=== PATIENT | male | born 1950 | race Caucasian/White ===

== ENCOUNTER 2024-10-04 15:56 | Outpatient (RCR) | payer MEDICARE, BC | END 2024-10-08 | LOC: PT 15:56 | PROVIDERS: ATTEND Family Medicine Adult Medicine | DX: S43.431A Superior glenoid labrum lesion of right shoulder, initial encounter (principal) ==

== ENCOUNTER → 2024-12-21 | Outpatient (REF) | payer MEDICARE, BC ==
[2024-12-21 09:54] LABS: BASOPHILS % 0.2 % (0.0-1.0); EOSINOPHILS # (AUTO) 0.2 (0.0-0.4); EOSINOPHILS % 3.5 % (0.0-6.0); HEMOGLOBIN 12.7 g/dL (14.0-18.0); LYMPHOCYTES # (AUTO) 1.5 (1.0-3.2); LYMPHOCYTES % 30.7 % (18.0-39.1); MEAN CORPUSCULAR HEMOGLOBIN 29.5 pg (28-32); MEAN CORPUSCULAR HGB CONC 33.4 g/dL (31-35); MEAN CORPUSCULAR VOLUME 88.2 fL (81-99); MONOCYTES # (AUTO) 0.4 (0.2-0.8); MONOCYTES % 7.8 % (4.4-11.3); NEUTROPHILS # (AUTO) 2.8 (2.1-6.9); NEUTROPHILS % 57.6 % (38.7-80.0); PLATELET COUNT 125 x10e3/uL (140-360); RED BLOOD COUNT 4.31 x10e6/uL (4.3-5.7); WHITE BLOOD COUNT 4.89 x10e3/uL (4.8-10.8)
== END ==
LOC: LAB 09:40
PROVIDERS: ATTEND Family Medicine Adult Medicine
DX: D69.6 Thrombocytopenia, unspecified (principal)
CPT/HCPCS: 36415; 85025